=== PATIENT | male | born 1965 | race Two or more races ===

== ENCOUNTER 2017-10-11 15:51 | Emergency (ER) | payer BC ==
--- NOTE | 2017-10-11 16:56 | EDM.PDOC ---
ED HPI GENERAL MEDICAL PROBLEM - General Chief Complaint: Upper Extremity Injury/Pain Stated Complaint: POSS. BROKEN ARM Time Seen by Provider: 10/11/17 16:16 Source of Information: Reports: Patient History Limitations: Reports: No Limitations - History of Present Illness INITIAL COMMENTS - FREE TEXT/NARRATIVE: 52-year-old male presents for evaluation and treatment of pain to the right distal forearm. Patient reports he was pushing a table on Wednesday. States that it was quite heavy. Reports that the table fell over. He does not recall the table actually hitting him in the arm. He reports the pain has steadily worsened. He has experienced pain with supination, pronation, flexion and extension of the right wrist. Has also appreciated an area of swelling and tenderness to the right distal forearm. No numbness or tingling. Patient is right-handed. Right Lower Arm Pain Score (Numeric/FACES): 2 - Related Data Allergies Allergy/AdvReac Type Severity Reaction Status Date / Time No Known Allergies Allergy Verified 10/11/17 16:09 Home Meds: Home Meds . [No Known Home Meds] 10/11/17 [History] Past Medical History HEENT History: Reports: Impaired Vision Social & Family History - Family History Cardiac: Reports: CAD, Hypertension Neurological: Reports: Cerebral Aneurysms Endocrine/Metabolic: Reports: Diabetes, type II Oncologic: Reports: Ovarian - Tobacco Use Smoking Status *Q: Current Every Day Smoker Years of Tobacco use: 32 Packs/Tins Daily: 1 - Caffeine Use Caffeine Use: Reports: Coffee - Recreational Drug Use Recreational Drug Use: No Review of Systems - Review of Systems Review Of Systems: See Below Musculoskeletal: Reports: Arm Pain (right distal forearm), Other (swelling and tenderness to the right distal forearm; pain with ROM to the right wrist and forearm) Skin: Denies: Bruising Neurological: Denies: Numbness, Tingling ED EXAM, GENERAL - Physical Exam Exam: See Below Exam Limited By: No Limitations General Appearance: Alert, WD/WN, No Apparent Distress Respiratory/Chest: No Respiratory Distress, Lungs Clear, Normal Breath Sounds Cardiovascular: Normal Peripheral Pulses, Regular Rate, Rhythm, No Murmur Peripheral Pulses: 2+: Radial (L), Radial (R) Extremities: Other (approximately golf ball sized area of swelling to the right distal forearm, radial aspect; tenderness to palpation to the right distal radius; no snuff box tenderness, no tenderness to the right hand; pain with supination/ pronation and flexion and extension to the right wrist) Neurological: Alert, Oriented, Normal Cognition Psychiatric: Normal Affect, Normal Mood Skin Exam: Warm, Dry, Normal Color. No: Ecchymosis Course - Vital Signs Last Recorded V/S: Last Vital Signs Temp 98.5 F 10/11/17 16:12 Pulse 86 10/11/17 16:12 Resp 18 10/11/17 16:12 BP 132/86 10/11/17 16:12 Pulse Ox 96 10/11/17 16:12 - Orders/Labs/Meds Orders: Active Orders 24 hr Category Date Time Status Forearm 2V Rt [CR] Stat Exams 10/11/17 16:26 Taken - Radiology Interpretation Free Text/Narrative:: xray of the right forearm shows no acute fracture. reviewed by myself and Dr. Anders. - Re-Assessments/Exams Free Text/Narrative Re-Assessment/Exam: 10/11/17 17:06 reviewd the injury with the patient. Soft tissue swelling and muscular injury. Discharge instrucitions as documented. Departure - Departure Time of Disposition: 17:07 Disposition: Home, Self-Care 01 Condition: Good Clinical Impression: Soft tissue swelling, Muscle strain - Discharge Information *PRESCRIPTION DRUG MONITORING PROGRAM REVIEWED*: No *COPY OF PRESCRIPTION DRUG MONITORING REPORT IN PATIENT HAM: No Instructions: Muscle Strain, [id number], Contusion, [id number] Referrals: Chino Stone MD [Physician] - Forms: ED Department Discharge Additional Instructions: OTC tylenol and motrin as needed for discomfort, Ice the area. May use compression such as an DICKSON bandage to help with the swelling. If not much better in 7-10 days, follow-up with orthopedics. Recommend Dr. Stone at the [facility]. Call [phone] to schedule with him. Please return to the ER should your symptoms change or worsen. - My Orders Last 24 Hours: My Active Orders 10/11/17 16:26 Forearm 2V Rt [CR] Stat - Assessment/Plan Last 24 Hours: My Active Orders 10/11/17 16:26 Forearm 2V Rt [CR] Stat
--- NOTE | 2017-10-12 14:07 | CR ---
Right forearm: Two views of the right forearm were obtained. Comparison: No previous right forearm study. Joint spaces are maintained. No fracture or other bony abnormality is seen. Impression: 1. No abnormality is seen on two-view right forearm study. Diagnostic code #1
== END 2017-10-11 17:20 | disposition home or self-care (01) ==
LOC: JD.ED 15:51
DX: S56.911A Strain of unspecified muscles, fascia and tendons at forearm level, right arm, initial encounter (principal); E11.9 Type 2 diabetes mellitus without complications; F17.210 Nicotine dependence, cigarettes, uncomplicated; I10 Essential (primary) hypertension; W20.8XXA Other cause of strike by thrown, projected or falling object, initial encounter
CPT/HCPCS: 73090-26-RT; 73090-RT; 99283